=== PATIENT | female | born 1970 | race Caucasian/White ===

== ENCOUNTER → 2019-05-11 | Emergency (ER) | payer MEDICAID ==
[~2019-05-11] MED LIST: IBUPROFEN 600 MG TABLET PO ONE
== END | disposition home or self-care (01) ==
DX: M77.8 Other enthesopathies, not elsewhere classified (principal); M25.531 Pain in right wrist

== ENCOUNTER 2020-07-05 07:42 | Emergency (ER) | payer SELFPAY ==
[~2020-07-05] VITALS: Ht 157.5 cm; Wt 51.7 kg
--- NOTE | 2020-07-05 07:50 | NUR ---
CAME TO ER WITH C/O RIGHT SHOULDER PAIN OF 6/10 RADIATING TO RIGHT HAND X 1 MONTH. NO TRAUMA/INJURY NOTED. NO SWELLING. NO DISCOLORATION. NO C/O CHEST PAIN. AWAITING FOR MD REESE
--- NOTE | 2020-07-05 07:56 | NUR ---
MD AT BEDSIDE FOR EVALUATION
[2020-07-05 08:18] VITALS: BP 101/73
== END 2020-07-05 08:19 | disposition home or self-care (01) ==
LOC: ER 07:46
DX: G56.01 Carpal tunnel syndrome, right upper limb (principal)

== ENCOUNTER 2024-09-27 13:21 | Emergency (ER) | payer OTHER ==
[~2024-09-27] VITALS: Ht 162.6 cm; Wt 54.4 kg
[2024-09-27 14:11] LABS: CALCIUM, SERUM 9.2 mg/dL (8.5-10.1); CREATININE 0.6 mg/dL (0.6-1.3); POTASSIUM 4.1 mmol/L (3.5-5.1)
[2024-09-27 14:23] LABS: BASOPHILS % (AUTO) 0.4 % (0.0-2.0); EOSINOPHILS # (AUTO) 0.1 K/uL (0.0-0.7); EOSINOPHILS % (AUTO) 1.2 % (0.0-6.0); HEMATOCRIT 38 % (33-45); LYMPHOCYTES # (AUTO) 2.9 K/uL (0.8-4.8); LYMPHOCYTES % (AUTO) 47.4 % (20.0-44.0); MEAN CORPUSCULAR HEMOGLOBIN 30 PG (26.0-33.0); MEAN CORPUSCULAR HGB CONC 34 g/dl (31.0-36.0); MEAN CORPUSCULAR VOLUME 88 fL (82-100); MONOCYTES # (AUTO) 0.6 K/uL (0.1-1.30); MONOCYTES % (AUTO) 9.2 % (2.0-12.0); NEUTROPHILS # (AUTO) 2.5 K/uL (1.8-8.9); NEUTROPHILS % (AUTO) 41.8 % (43.0-81.0); PLATELET COUNT (AUTO) 247 K/uL (150-450); RED BLOOD CELL COUNT(AUTO) 4.31 MIL/uL (4.0-5.2); WHITE BLOOD COUNT (AUTO) 6.1 K/uL (4.3-11.0)
[2024-09-27] MEDS: IV NS 0.9% 1,000 ML BAG IV ONE (14:30)
[2024-09-27] MEDS: MECLIZINE HCL 12.5 MG TABLET PO ONE (14:30)
[2024-09-27] MEDS ORDERED: MECLIZINE HCL 25 MG TABLET ONE (14:34)
[2024-09-27] MEDS ORDERED: MECL-159 PO (16:30)
[2024-09-27 16:46] VITALS: BP 109/69; TEMP 97.9; O2SAT 99
== END 2024-09-27 16:47 | disposition home or self-care (01) ==
LOC: ER 13:43
DX: R42 Dizziness and giddiness (principal); E78.5 Hyperlipidemia, unspecified; Z88.8 Allergy status to other drugs, medicaments and biological substances
CPT/HCPCS: 99284; 96360; 93005; 85025; 80048; 36415; J8597; J7030

== ENCOUNTER 2025-07-06 22:59 | Emergency (ER) | payer OTHER ==
[~2025-07-06] VITALS: Ht 154.9 cm; Wt 52.2 kg
[~2025-07-06 22:59] MED LIST changes: -IBUPROFEN 600 MG TABLET PO ONE; +MECL-159 PO
[2025-07-07] MEDS ORDERED: PROCHLORPERAZINE EDISYLATE 10 MG/2 ML VIAL ONE (00:26)
[2025-07-07] MEDS ORDERED: dexaMETHasone SOD PHOSPHATE 1 ML ONE (00:26)
[2025-07-07] MEDS ORDERED: KETOROLAC TROMETHAMINE 15 MG/ML VIAL ONE (00:26)
[2025-07-07] MEDS: IV NS 0.9% 1,000 ML BAG IV ONE (00:45)
[2025-07-07] MEDS: PROCHLORPERAZINE EDISYLATE 10 MG/2 ML VIAL IVP ONE (00:45)
[2025-07-07] MEDS: KETOROLAC TROMETHAMINE 15 MG/ML VIAL IV ONE (00:45)
[2025-07-07] MEDS: dexaMETHasone SOD PHOSPHATE 10 MG/ML VIAL IV ONE (00:45)
[2025-07-07 01:08] VITALS: BP 133/88; TEMP 98; O2SAT 99
== END 2025-07-07 01:08 | disposition home or self-care (01) ==
LOC: ER 23:03
DX: H11.32 Conjunctival hemorrhage, left eye (principal); R51.9 Headache, unspecified
CPT/HCPCS: 99284; 96360; 70450; J7030; J0780; J1100; J1885